=== PATIENT | female | born 1945 | race Caucasian/White ===

== ENCOUNTER → 2016-09-11 | Outpatient (CLI) | payer MEDICARE ==
--- NOTE | 2016-09-11 18:17 | MRI ---
EXAM DESCRIPTION: MR CERVICAL SPINE WITHOUT IV CONTRAST CLINICAL HISTORY: SPONDYLOSIS WITH MYELOPATHY COMPARISON: 19 Jan 2014. TECHNIQUE: Multi plantar multi sequence noncontrast imaging. FINDINGS: There is good alignment of the cervical spine. There is no vertebral abnormality. Craniocervical junction and the cord are unremarkable. No extra spinous abnormality is detected. C2-3: Unremarkable. C3-4: Unremarkable. C4-5: The disc is desiccated. No significant disk bulge or herniation is observed. The right neural foramina is patent. Mild narrowing of the left neural foramen is observed is result of facet joint arthritis. C5-6: The disc is desiccated. A minimal annular bulge is evident. The neural foramina are preserved. Mild facet joint arthritis is noted. C6-7: The disc is desiccated. A minimal 2 mm right-sided disc bulge is observed. No neural foraminal disease of significance is detected. C7-T1: Unremarkable. IMPRESSION: 1. A minimal 2 mm right-sided disc bulge is observed at the C6-7 level. 2. Facet joint arthritis is observed at the C4-5 level with mild narrowing of the left neural foramen 3. A minimal annular bulge is seen at the C5-6 level Electronically signed by: Poncho Contreras MD 09/11/2016 18:14
== END ==
LOC: MRI 14:25
PROVIDERS: ATTEND Neurological Surgery
DX: M43.10 Spondylolisthesis, site unspecified (principal); M47.12 Other spondylosis with myelopathy, cervical region; M46.82 Other specified inflammatory spondylopathies, cervical region; M50.822 Other cervical disc disorders at C5-C6 level

== ENCOUNTER 2016-10-06 15:43 | Observation (INO) | payer MEDICARE ==
--- NOTE | 2016-10-06 15:45 | HP ---
SUPERVISING PHYSICIAN: Danyel Calvin MD CHIEF COMPLAINT: Symptomatic bradycardia. HISTORY OF PRESENT ILLNESS: Ms. Cardoso is a 71-year-old, female patient of Dr. Marcelino. For the past two weeks, the patient has been having some dizziness. This past , she noted her heart rate had decreased significantly. Typically, the patient takes metoprolol tartrate 150 mg daily with 100 mg in the morning and 50 mg at night. She called Dr. Esquivel on who recommended she change her dose to metoprolol 25 mg in the morning and 25 mg at night. On Thursday, the patient was still feeling very weak. She had been keeping her blood pressure and noted her blood pressure was low and her heart rate continued to be low and she had changed her dose of the metoprolol to just 25 mg daily. She presented to Dr. Esquivel' office today still complaining of dizziness and low heart rate. In Dr. Marcelino office, an EKG was completed showing a sinus bradycardia with rate of 34. The patient was having some near syncopal episodes in the office. Dr. Esquivel consulted with Dr. Estes , her paster operator, who recommended that we decrease the metoprolol or stop it altogether and placer her in the hospital overnight for observation for close monitoring and if she stabilizes, discharge her home with an event monitor to further help evaluate underlying bradycardia. She was directly admitted from Dr. Esquivel' office in stable condition. PAST MEDICAL HISTORY: 1. Type 2 diabetes on p.o. medicine. 2. Gastroesophageal reflux disease. 3. Hypertension. 4. Diverticulosis. 5. Irritable bowel syndrome. 6. Past history of gastritis. 7. Obstructive hypertrophic cardiomyopathy that was found in 2012 after she had a workup for severe hypertension during a cystoscopy procedure. 8. History of nephrolithiasis with 3 stones being passed in 05/2014, currently followed by Dr. Evans. 9. Gout. 10. Rosacea. 11. Fatty liver as noted on CT in 01/2007 with no evidence of steato-hepatitis with normal liver functions. PAST SURGICAL HISTORY: 1. Total hysterectomy and bilateral salpingo-oophorectomy secondary to irregular menses. 2. Bilateral knee replacements. 3. Skin cancer removed from the back in 1991. 4. Carpal tunnel release on the right hand twice and left hand once. 5. Multiple procedures for nephrolithiasis with stent placements and lithotripsy on the right. CURRENT MEDICATIONS: 1. Terbinafine 250 mg daily. 2. Simvastatin 20 mg at bedtime. 3. Nitrostat q.5 minutes p.r.n. 4. Aromas 5/325 q.4h. as needed for pain. 5. Glucovance 2 tablets twice daily. 6. Amlodipine 2.5 mg daily. 7. Allopurinol 100 mg daily. 8. Aspirin 81 mg daily. 9. Triamterene/hydrochlorothiazide 37.5/25 mg 1 tablet daily. 10. Omeprazole 40 mg daily. 11. Montelukast sodium 10 mg daily. 12. Metoprolol initially 50 mg in the morning and 50 mg at night, changed within the last four days to initially 25 mg twice daily and then decreased once more to 25 mg once daily. ALLERGIES: NO KNOWN DRUG ALLERGIES. FAMILY HISTORY: Father at age 67 from throat cancer and diabetes mellitus. Mother has hypertension. SOCIAL HISTORY: The patient is retired from [employer]. She is and lives in [place]. She has never smoked and only drinks on occasional basis at social events. Denies any illicit drug use. REVIEW OF SYSTEMS: CONSTITUTIONAL: Denies any fevers, general malaise, headache. HEENT: Denies headaches. She notes she has some visual changes with near syncopal episodes, but denies any nasal congestion, sinus pain or sore throat. RESPIRATORY: Denies shortness of breath, cough. CARDIOVASCULAR: Denies chest pain, but notes she is having some chest tightness at times with slow heart rate and she does have some presyncopal episodes, but has not had a complete syncopal episode. She denies any palpitations. GASTROINTESTINAL: Denies abdominal pain, constipation, nausea or vomiting. She does have a history of irritable bowel syndrome, but is well controlled. NEUROLOGIC: Denies any headaches, but notes she has had some near syncopal episodes as noted in history of present illness. PHYSICAL EXAMINATION: VITAL SIGNS: Temperature 97.9. Pulse 48. Blood pressure 140/68. Respirations 18. O2 saturation 100% on room air. Admission weight 69.3 kg. GENERAL: The patient is well-nourished, well-groomed, appears to be in no acute distress. She is alert and oriented times three. HEENT: Tympanic membranes clear bilaterally. Oropharynx is pink, moist without any lesions. NECK: No jugular venous distention noted. CARDIOVASCULAR: Regular rate and rhythm with bradycardiac rhythm noted on bedside monitor with a systolic murmur. ABDOMEN: Soft, nontender. Positive bowel sounds. EXTREMITIES: There is no cyanosis, clubbing or edema. NEUROLOGIC: The patient is alert and oriented times three. Cranial nerves II- XII are grossly intact. Facial features are symmetrical. Extraocular movements within normal limits. There is no nystagmus. There are no localizing or focalizing neuromotor deficits noted. LABORATORY: CBC within normal limits with white count 8.2, hemoglobin 13.6, hematocrit 40.8, platelet count 185,000, differential shows no shift. PT, PT-T within normal limits. Chemistries show electrolytes within normal limits with potassium 4.1, BUN 18, creatinine 0.9, glucose 124, calcium 11, magnesium 1.4. Liver functions all within normal limits. Troponin less than 0.02. TSH normal at 1.32. RADIOLOGY: Chest x-ray per radiology interpretation single view shows no obvious pleural effusions, pneumothorax. Lungs are normally aerated and clear. Pulmonary vasculature appears to be within normal limits per radiology interpretation. 12 lead EKG shows marked bradycardia with a heart rate of 34. ASSESSMENT: 1. Symptomatic bradycardia, possibly secondary to beta mukesh intolerance requiring modification of beta blockade regimen that includes metoprolol tartrate. 2. Type 2 diabetes mellitus, not requiring insulin. 3. Hypertension. 4. History of irritable bowel syndrome. 5. History of hypertrophic cardiomyopathy with systolic murmur with last echocardiogram noted to be 10/2015 with ejection fraction 65%. 6. History of rosacea. 7. Gastroesophageal reflux disease. 8. Electrolyte imbalance with a mild hypercalcemia and moderate hypomagnesemia, likely secondary to diuretics that include hydrochlorothiazide and most likely chronic with the patient being asymptomatic. PLAN: The patient will be placed in observation tonight and placed on telemetry for close monitoring and further evaluation. Laboratory studies and x -rays were completed. The patient was without any chest pains or any complaints. We will continue to monitor cardiac enzymes q.6h. times two and repeat laboratory studies in the morning to include cardiac enzymes. We will plan to hold her beta mukesh, metoprolol tartrate, tonight. Her last does was 11 o'clock in the morning the date of admission. If the patient is stable overnight, anticipate discharge possibly tomorrow with length of stay to be 1 to 2 days. Once the patient is discharged as per Dr. Estes' request, we will discharge her and set her up with an event monitor to have close clinical followup both with Dr. Esquivel, her primary care provider, and her paster operator, Dr. Estes. She will be started on a diabetic diet, sliding scale. We will also start her on DVT prophylaxis per protocol. Until discharge, we will continue to monitor the patient closely and treat appropriately. #[id number] [facility]
[2016-10-06] MEDS ORDERED: DEXTROSE 50% 25 GM/50 ML SYG IV PRN (15:50)
[2016-10-06] MEDS ORDERED: GLUCAGON INJ 1 MG VIAL SUBCU PRN (15:50)
[2016-10-06] MEDS ORDERED: ACETAMINOPHEN 325 MG TAB PO PRN (15:50)
[2016-10-06] MEDS ORDERED: NITROGLYCERIN 0.4 MG 25 EA TAB SL PRN (15:50)
[2016-10-06] MEDS ORDERED: SODIUM CHLORIDE 0.9% (FLUSH) 10 ML SYG IV PRN (15:50)
[2016-10-06] MEDS ORDERED: IV SET AND CAP CHANGE INJ INJ SCH (16:00)
[2016-10-06] MEDS ORDERED: SODIUM CHLORIDE 0.9% 10 ML VIAL INJ PRN (16:14)
--- NOTE | 2016-10-06 16:22 | RAD ---
EXAM DESCRIPTION: XR CHEST 1 VIEW CLINICAL HISTORY: bradycardia COMPARISON: November 19, 2014 IMPRESSION: Single AP portable upright view of the chest shows cardiac silhouette and pulmonary vasculature to be within normal limits. Lungs are normally aerated and clear. No obvious pleural effusion or pneumothorax is seen. Electronically signed by: Yves Mcnair MD 10/06/2016 16:20
[2016-10-06] MEDS: INSULIN LISPRO 100 UNITS/ML PEN SUBCU SCH ×2 (16:58→21:01)
--- NOTE | 2016-10-06 19:39 | PCM.CORE ---
Physician DVT/VTE - Nurse DVT Assessment & Total Each Risk Factor Represents 3 Points: Medical PT with Hx of DC, CHF, Severe infection/sepsis Each Risk Factor Represents 2 Points: Age 60-74 DVT Assessment Score: 5 - 5 or more Very High Risk Treatments: Early Ambulation *, Sequential Compression Device Pharmacological: Enoxaparin 40mg SQ Daily
[2016-10-06] MEDS ORDERED: OMEPRAZOLE CAP 20 MG CAP ONE (19:46)
[2016-10-06] MEDS ORDERED: HYDROcodone 7.5MG/APAP 325MG 1 EA TAB ONE ×2 (19:46→23:52)
[2016-10-06] MEDS: HYDROCODONE PO PRN ×2 (19:48→23:56)
[2016-10-06] MEDS: SIMVASTATIN 20 MG TAB PO SCH ×2 (19:48→20:36)
[2016-10-06] MEDS: [UNRECOGNIZED DRUG - OTHER] PO PRN ×2 (19:48→23:56)
[2016-10-06] MEDS ORDERED: ENOXAPARIN SODIUM 40 MG/0.4 ML SYG SUBCU SCH (20:00)
[2016-10-06] MEDS ORDERED: SODIUM CHLORIDE 0.9% (FLUSH) 10 ML SYG IV SCH (21:00)
[2016-10-07] MEDS ORDERED: HYDROcodone 7.5MG/APAP 325MG 1 EA TAB ONE (05:32)
[2016-10-07] MEDS: [UNRECOGNIZED DRUG - OTHER] PO PRN (05:33)
[2016-10-07] MEDS: HYDROCODONE PO PRN (05:33)
[2016-10-07] MEDS ORDERED: NON-FORMULARY MEDICATION 1 EA MIS (Omeprazole [Omeprazole] 40 MG) PO SCH (07:00)
[2016-10-07] MEDS ORDERED: SODIUM CHLORIDE 0.9% 10 ML VIAL IV PRN (07:07)
[2016-10-07] MEDS ORDERED: HYDROcodone 7.5MG/APAP 325MG 1 EA TAB PO PRN ×2 (07:08→07:36)
[2016-10-07] MEDS: INSULIN LISPRO 100 UNITS/ML PEN SUBCU SCH ×2 (07:17→11:19)
[2016-10-07] MEDS ORDERED: metFORMIN HCL 500 MG TAB PO SCH (07:30)
[2016-10-07] MEDS ORDERED: OMEPRAZOLE CAP 20 MG CAP PO SCH (07:30)
[2016-10-07] MEDS ORDERED: glyBURIDE 5 MG TAB PO SCH (07:30)
[2016-10-07] MEDS ORDERED: GLYBURIDE METFORMIN PO SCH (07:30)
[2016-10-07] MEDS ORDERED: SODIUM CHLORIDE 0.9% 1000ML 1,000 ML ONE (07:38)
[2016-10-07] MEDS ORDERED: HCTZ 25 MG/TRIAMTERENE 37.5 MG 1 EA CAP PO SCH (09:00)
[2016-10-07] MEDS ORDERED: amLODIPine BESYLATE 5 MG TAB PO SCH (09:00)
[2016-10-07] MEDS ORDERED: ASPIRIN (CHEWABLE) 81 MG TAB PO SCH (09:00)
[2016-10-07] MEDS ORDERED: MONTELUKAST SODIUM 10 MG TAB PO SCH (09:00)
[2016-10-07] MEDS ORDERED: TERBINAFINE HCL 250 MG TAB PO SCH (09:00)
[2016-10-07] MEDS ORDERED: ALLOPURINOL 100 MG TAB PO SCH (09:00)
[2016-10-07] MEDS ORDERED: ATROPINE 1 MG/10 ML SYG IV ONE (09:04)
[2016-10-07] MEDS ORDERED: SODIUM CHLORIDE 0.9% 1000ML 500 ML IVS ONE (09:04)
[2016-10-07 10:03] VITALS: TEMP 98; O2SAT 100
[2016-10-07 11:20] VITALS: BP 118/67
--- NOTE | 2016-10-07 15:30 | DS ---
SUPERVISING PHYSICIAN: Danyel Calvin MD Transfer to [facility] on 10/07/16. DISCHARGE DIAGNOSIS: 1. Symptomatic bradycardia, unknown etiology, requiring pacemaker implantation at [facility] with the patient having been removed from all beta blockade within the last 24 hours. 2. Type 2 diabetes mellitus, not requiring insulin. 3. Hypertension. 4. History of irritable bowel syndrome. 5. History of hypertrophic cardiomyopathy with systolic murmur with last echocardiogram noted to be 10/2015 with ejection fraction 65%. 6. History of rosacea. 7. Gastroesophageal reflux disease. 8. Electrolyte imbalance with a mild hypercalcemia and moderate hypomagnesemia, likely secondary to diuretics that include hydrochlorothiazide and chronic in nature with the patient being asymptomatic. HISTORY OF PRESENT ILLNESS: Ms. Cardoso is a 71-year-old, female patient of Dr. Marcelino. The patient had been having some dizziness for the last several weeks. This past , she noted her heart rate had decreased significantly. Typically, the patient takes metoprolol tartrate 150 mg daily with 100 mg in the morning and 50 mg at night. She called Dr. Esquivel on who recommended she change her dose to metoprolol 25 mg in the morning and 25 mg at night. This past Thursday, the patient was still feeling very weak. She had been keeping her blood pressure and noted her blood pressure was low and her heart rate continued to be low and she had changed her dose of the metoprolol to just 25 mg metoprolol daily. She presented to Dr. Esquivel' office on Thursday, the date of admission, still complaining of dizziness and low heart rate. In Dr. Marcelino office, an EKG was completed showing a sinus bradycardia with rate of 34. The patient was also having some near syncopal episodes in the office. At that point, Dr. Esquivel consulted with Dr. Estes, her corporate specialist, who recommended that the patient be admitted and taken off metoprolol and closely monitored in the hospital overnight for possible concern for need for pacemaker versus complications from beta blockade. Initial hopes were to discharge on the morning after with the patient being removed from her metoprolol altogether, however, she continued to show bradycardia requiring intervention with atropine as she became more symptomatic. Dr. Estes did see the patient in consultation on the Floor and recommended the patient be transferred to [facility] for preparation for possible pacemaker implantation. LABORATORY: CBC on admission was within normal limits. Coagulation studies were within normal limits. Chemistries initially on admission showed normal electrolytes with BUN 18, creatinine 0.92, glucose 123. Glucoses did range from 106 to 123. Magnesium was low at 1.4, calcium 11. Liver functions all within normal limits. Troponin run times 3, all less than 0.02. At time of discharge, electrolytes were within normal limits with potassium 4.0. Last troponin was less than 0.02. Urinalysis was within normal limits. EKG on admission showed a sinus bradycardia. Telemetry through the night showed the patient to be continued in bradycardia with episodes of decreasing down into the low 30s to high 20s. RADIOLOGY: Chest x-ray per radiology interpretation on admission showed no obvious pleural effusions, pneumothorax. Lungs are normally aerated. Pulmonary vasculature appears to be within normal limits. HOSPITAL COURSE: Ms. Cardoso was admitted directly from [facility]' office as noted in history of present illness for concerns for symptomatic bradycardia on . Upon admission, she was without chest pains, just some weakness associated with standing and dizziness. She was placed on telemetry and monitored closely. Laboratory studies were completed with no changes in her EKG or any elevation of troponin. Through the night, the patient remained in the mid-40s. This morning around 7 or 8 o'clock, the patient was out of bed due to some back discomfort that is chronic and it was noted on the monitor that the patient was in the 20s. When nursing staff went in, the patient was lightheaded and was safely escorted back to bed with instructions to remain in bed. I was notified of the patient's condition change. Blood pressure at that time was systolic in the 90s and heart in the low 30s to high 20s. At the time , she was given 0.5 mg of Atropine and remained stable. Dr. Estes was contacted in regards to the patient's condition who recommended the patient be transferred to [facility] for preparation for possible pacemaker implantation. PLAN: The patient is transferred to [facility] in stable condition, but guarded, for symptomatic bradycardia. Dr. Vallecillo was the accepting physician for the hospitalist program with consultation by cardiology , Dr. Estes. Reason for transfer was higher level of care not available at [facility] to include cardiology services. She was transferred by ground ambulance, paramedics. She was NPO at time of transfer. Vital signs at discharge showed blood pressure 118/67, heart rate 42, saturation 100% on room air. Condition on transfer was serious, but stable. #[id number] [facility]
== END 2016-10-07 13:00 | disposition short-term general hospital (02) ==
LOC: MS 15:43
PROVIDERS: ADMIT Family Medicine; ATTEND Nurse Practitioner Family
DX: R00.1 Bradycardia, unspecified (principal); E11.9 Type 2 diabetes mellitus without complications; I10 Essential (primary) hypertension; K58.9 Irritable bowel syndrome, unspecified; I42.2 Other hypertrophic cardiomyopathy; K21.9 Gastro-esophageal reflux disease without esophagitis; E83.52 Hypercalcemia; E83.42 Hypomagnesemia; R42 Dizziness and giddiness; M10.9 Gout, unspecified; L71.9 Rosacea, unspecified; Z79.84 Long term (current) use of oral hypoglycemic drugs; Z79.82 Long term (current) use of aspirin; Z79.899 Other long term (current) drug therapy; Z87.442 Personal history of urinary calculi; Z90.710 Acquired absence of both cervix and uterus; Z96.653 Presence of artificial knee joint, bilateral; Z85.828 Personal history of other malignant neoplasm of skin; Z83.3 Family history of diabetes mellitus; Z82.49 Family history of ischemic heart disease and other diseases of the circulatory system; Z80.2 Family history of malignant neoplasm of other respiratory and intrathoracic organs
CPT/HCPCS: 36415 ×3; 36416 ×3; 71010; 80048; 80053; 81001; 82550 ×2; 82553 ×2; 82948 ×4; 83735; 84443; 84484 ×3; 85025; 85610; 85730; 93005 ×4; 94760; 96372; 96374; G0378; J1650; J7030

== ENCOUNTER → 2017-04-20 | Outpatient (CLI) | payer MEDICARE | END | disposition home or self-care (01) | LOC: GMAL 14:23 | PROVIDERS: ATTEND Family Medicine | DX: N10 Acute pyelonephritis (principal) ==

== ENCOUNTER → 2017-04-27 | Outpatient (CLI) | payer MEDICARE | END | disposition home or self-care (01) | LOC: GMAL 15:17 | PROVIDERS: ATTEND Family Medicine | DX: D53.9 Nutritional anemia, unspecified (principal) ==

== ENCOUNTER → 2017-06-04 | Outpatient (CLI) | payer MEDICARE | END | disposition home or self-care (01) | LOC: GMAL 14:11 | PROVIDERS: ATTEND Family Medicine | DX: N39.0 Urinary tract infection, site not specified (principal) ==

== ENCOUNTER → 2017-08-27 | Outpatient (CLI) | payer MEDICARE | END | disposition home or self-care (01) | LOC: GMAL 10:45 | PROVIDERS: ATTEND Family Medicine | DX: N39.0 Urinary tract infection, site not specified (principal) ==

== ENCOUNTER → 2017-09-21 | Outpatient (CLI) | payer MEDICARE | END | disposition home or self-care (01) | LOC: GMAL 10:47 | PROVIDERS: ATTEND Family Medicine | DX: D51.3 Other dietary vitamin B12 deficiency anemia (principal); R53.83 Other fatigue; E55.9 Vitamin D deficiency, unspecified ==

== ENCOUNTER → 2017-10-19 | Outpatient (CLI) | payer MEDICARE | LOC: LAB.O 11:36 | PROVIDERS: ATTEND Family Medicine | DX: Z20.2 Contact with and (suspected) exposure to infections with a predominantly sexual mode of transmission (principal); Z57.8 Occupational exposure to other risk factors; Z20.6 Contact with and (suspected) exposure to human immunodeficiency virus [HIV] ==

== ENCOUNTER → 2017-11-19 | Outpatient (CLI) | payer MEDICARE ==
--- NOTE | 2017-11-24 15:08 | MAM ---
EXAM DESCRIPTION: 3D Screening BILATERAL : Digital Mammography. CLINICAL HISTORY: 72 years Female ANNUAL SCREENING . Right breast pain "but may be due to exercise." Mother with breast cancer. Postmenopausal. No HRT. COMPARISON: 2-D digital screening bilateral study 01/11/2014. No prior reports available. TECHNIQUE: Bilateral CC and MLO projection full-field images, 3-D tomosynthesis digital mammographic technique. Also bilateral synthesized CC/ MLO full-field images. CAD not utilized. FINDINGS: The breast parenchymal density pattern is: Heterogeneously dense breast tissue, which may obscure small masses. No skin thickening or nipple retraction bilateral solitary microcalcifications. Right breast intramammary lymph node in the axillary tail. No focal, stellate mass or density, focal asymmetry , and no suspicious microcalcifications bilaterally. Stable mammograms compared to prior study, taking into account differences in mammographic technique IMPRESSION: BI-RADS CATEGORY: 2 - BENIGN FINDINGS. FOLLOW UP: Routine digital bilateral screening, one year interval from October 2017. Written communication explaining the IMPRESSION and follow-up, will be mailed to the patient and referring health care provider. According to the [employer], yearly mammograms are recommended starting at age 40 and continuing as long as a woman is in good health. Any breast change noted on a breast self-exam should be reported promptly to the patient's healthcare provider. Breast MRI is recommended for women with an approximately 20-25% or greater lifetime risk of breast cancer, including women with a strong family history of breast or ovarian cancer and women who have been treated for Hodgkin's disease. A negative mammographic report should not delay tissue diagnosis in patients with significant clinical history or physical findings. Extremely dense breast tissue limits the sensitivity of digital mammography. Electronically signed by: Alex Landaverde MD 11/24/2017 3:06 PM CDT
== END ==
LOC: MAMMO 09:30
PROVIDERS: ATTEND Family Medicine
DX: Z12.31 Encounter for screening mammogram for malignant neoplasm of breast (principal)

== ENCOUNTER → 2018-03-24 | Outpatient (CLI) | payer MEDICARE | LOC: GMAL 14:58 | PROVIDERS: ATTEND Family Medicine | DX: E55.9 Vitamin D deficiency, unspecified (principal); M10.9 Gout, unspecified ==

== ENCOUNTER → 2018-04-29 | Outpatient (CLI) | payer MEDICARE ==
--- NOTE | 2018-04-29 12:40 | CT ---
EXAM DESCRIPTION: Head CLINICAL HISTORY: ATAXIA, balance problems several weeks, left arm weakness COMPARISON: None available TECHNIQUE: Noncontrast head CT was performed with routine protocol. FINDINGS: Degenerative changes at the AC joints. No acute process in the brain. Normal araiza-white matter differentiation. Ventricles and sulci are prominent consistent with age-related cerebral volume loss. Chronic lacunar lesions in the basal ganglia. No high density hemorrhage, focal edema or shift of the midline. No sulcal effacement. Normal orbital contents. Basilar cisterns appear clear. Intact calvarium with no fracture or lytic lesion. Normal aeration of tympanic cavities and mastoid air cells. No fluid levels in the paranasal sinuses. Skull base appears intact. Symmetrical internal auditory canals. Coronal and sagittal reformatted images confirm the findings. IMPRESSION: No acute intracranial pathologic process. This exam was performed according to our departmental dose-optimization program, which includes automated exposure control, adjustment of the mA and/or kV according to patient size and/or use of iterative reconstruction technique. Total DLP equals 752.48 mGycm. Electronically signed by: Bob Gallardo MD 04/29/2018 12:39 PM CDT
== END ==
LOC: CT 11:42
PROVIDERS: ATTEND Family Medicine
DX: I69.993 Ataxia following unspecified cerebrovascular disease (principal)

== ENCOUNTER → 2018-06-22 | Outpatient (CLI) | payer MEDICARE | LOC: GMAL 13:30 | PROVIDERS: ATTEND Family Medicine | DX: R53.83 Other fatigue (principal); E34.9 Endocrine disorder, unspecified; E78.49 Other hyperlipidemia; E11.9 Type 2 diabetes mellitus without complications ==

== ENCOUNTER → 2018-10-05 | Outpatient (CLI) | payer MEDICARE ==
--- NOTE | 2018-10-05 11:42 | CT ---
EXAM DESCRIPTION: Head CLINICAL HISTORY: HEADACHE COMPARISON: Previous CT head April 29, 2018 TECHNIQUE: Noncontrast head CT was performed with routine protocol. FINDINGS: Normal araiza-white matter differentiation. Ventricles and sulci are normal for age. No change compared to previous study. No high density hemorrhage, focal edema or shift of the midline. No sulcal effacement. Normal orbital contents. Basilar cisterns appear clear. Intact calvarium with no fracture or lytic lesion. Normal aeration of tympanic cavities and mastoid air cells. No fluid levels in the paranasal sinuses. Skull base appears intact. Symmetrical internal auditory canals. Coronal and sagittal reformatted images confirm the findings. Advanced degenerative osteoarthrosis of the temporomandibular joints bilaterally. IMPRESSION: No acute intracranial pathologic process. This exam was performed according to our departmental dose-optimization program, which includes automated exposure control, adjustment of the mA and/or kV according to patient size and/or use of iterative reconstruction technique. Total DLP equals 752.48 mGycm. Electronically signed by: Bob Gallardo MD 10/05/2018 11:40 AM [facility]
--- NOTE | 2018-10-05 17:41 | CT ---
EXAM DESCRIPTION: CT ABDOMEN AND PELVIS WITHOUT AND WITH CONTRAST CLINICAL HISTORY: ABD PAIN COMPARISON: CT abdomen and pelvis June 18, 2014 TECHNIQUE: CT of the abdomen and pelvis are performed prior to and during IV bolus administration of routine adult dose of nonionic iodinated IV contrast. Oral contrast media is administered as well. FINDINGS: CT abdomen The lung bases are clear of infiltrate. Liver is normal in size and low in density consistent with diffuse hepatic steatosis with sparing near the gallbladder. This is seen on the precontrast images. Spleen, pancreas, and left kidney are unremarkable. Large calculus or cluster of calculi in the lower infundibulum of the right kidney protrudes toward the pelvis and measures 1.4 cm in greatest dimension. No significant hydronephrosis to suggest obstructive uropathy. No stones in the left kidney. Previous study showed right hydroureteronephrosis due to the presence of a distal right ureteral calculus. This has passed or has been removed since the previous study. After IV contrast, repeat helical scanning through the abdomen was performed. Cardiac pacer is in place. Normal enhancement of cardiac chambers. In the upper abdomen, there is normal enhancement of the liver, spleen, kidneys, pancreas, and upper abdominal vessels. No calcified stones in the gallbladder. Contrast has passed through the proximal small bowel into the distal small bowel and colon. Moderate to large amount of fecal material in the descending and sigmoid colon. CT pelvis No inflammation is seen around the cecum or terminal ileum or sigmoid colon. Lipoma of the ileocecal valve measures 1.9 cm. Appendix is normal in appearance. No stones are seen in the distal ureters or bladder. Normal pelvic small bowel loops. No fracture or lytic lesion of the osseous structures. Postcontrast images show normal enhancement of the pelvic vessels. Uterus and ovaries are not seen, evidently surgically absent. Fatty patulous right inguinal ring without bowel containing hernia. Degenerative changes in lumbar spine and hips. Delayed postcontrast images show normal accumulation of contrast in the urinary collecting systems. Prominence of the right renal pelvis and right intrarenal collecting system is noted without evidence of obstruction. There is contrast in the urinary bladder. Coronal and sagittal reformatted images confirm the findings. Liver length of 19.6 cm is increased. IMPRESSION: Nonobstructing calculus in the lower infundibulum of the right kidney 1.4 cm. 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 Hepatomegaly with diffuse hepatic steatosis. No acute process in the upper abdomen or in the pelvis. This exam was performed according to our departmental dose-optimization program, which includes automated exposure control, adjustment of the mA and/or kV according to patient size and/or use of iterative reconstruction technique. Electronically signed by: Bob Gallardo MD 10/05/2018 5:39 PM [facility] [place]
== END ==
LOC: CT 09:17
PROVIDERS: ATTEND Family Medicine
DX: R10.84 Generalized abdominal pain (principal); N20.0 Calculus of kidney; K76.0 Fatty (change of) liver, not elsewhere classified; G44.209 Tension-type headache, unspecified, not intractable

== ENCOUNTER → 2018-10-08 | Outpatient (CLI) | payer MEDICARE ==
--- NOTE | 2018-10-08 16:15 | CT ---
EXAM DESCRIPTION: Lumbar Spine: Computed Tomography. CLINICAL HISTORY: 73 years Female RADICULOPATHY. History of neck and low back pain. COMPARISON: CT scan of the cervical spine on the same visit. TECHNIQUE: Spiral, axial 2.5 x 2.5 mm scans through the lumbarspine without contrast. Coronal and sagittal 2.0 mm Reconstructions. No adverse reactions. Total Exam DLP: 489.05 mGy-cm. This exam was performed according to our departmental dose-optimization program which includes automated exposure control, adjustment of the mA and/or kV according to patient size and/or use of iterative reconstruction technique; to reduce radiation dose to as low as reasonably achievable (ALARA). FINDINGS: L5-S1: Disc space maintained. Posterior midline 3 mm disc bulge abutting the thecal sac. Mild canal narrowing. Bilateral facet arthrosis with narrowing of the foramen. L4-L5: Minimal disc space loss with anterior and posterior calcification of the disc. 2 mm grade 1 anterolisthesis. Posterior bulging disc impressing on the thecal sac along with bilateral calcified hypertrophied flavum ligaments. AP canal diameter 9 mm. Disc bulge or protrusion into the right foramen and right facet joint hypertrophy with foraminal stenosis. Moderate narrowing of the left foramen. L3-L4: Minimal disc space loss. Anterior endplate reactive changes with inferior L3 Schmorl's node. Posterior broad-based 4 mm disc bulge abutting the thecal sac. Bilateral facet arthrosis and hypertrophy of the joints and flavum ligaments. AP canal diameter 9 mm. Mild right foraminal narrowing with facet spur abutting the nerve root. Moderate left foraminal narrowing. L2-L3: Minimal disc space loss and posterior disc bulge with calcified rim. Calcified disc also bulging into the bilateral foramina with mild narrowing of the canal and the foramina. Bilateral facet arthrosis and joint and ligament hypertrophy more left than right. L1-L2: S2 disc bulge with calcification. Anterior endplate ridging. Mild canal narrowing with no significant foraminal narrowing. T12-L1: Minimal disc bulging. No canal or foraminal narrowing. Minimal facet arthrosis bilaterally and it hypertrophy of the flavum ligaments. Right convex L4 S1- curvature and left convex L1- L4 curvature. No compression type vertebral body fractures. No spondylolisthesis at other levels. IMPRESSION: 1. 2 mm grade 1 anterolisthesis at L4-L5. No spondylolysis. Disc bulge into the canal and herniation into the right foramen along with right facet subluxation and hypertrophy, right foraminal stenosis and impingement of the exiting right L4 nerve. Borderline mild canal stenosis. 2. Posterior broad-based L3-L4 disc bulge. Borderline mild central canal stenosis. Moderate left foraminal narrowing. Right facet spur abutting the right L3 nerve in the right foramen. 3. L2-L3 calcified disc bulging into the canal and bilateral foramina with narrowing but no stenosis and no definite nerve impingement. Electronically signed by: Alex Landaverde MD 10/08/2018 4:13 PM [facility]
--- NOTE | 2018-10-08 21:26 | CT ---
EXAM DESCRIPTION: Cervical Spine: Computed Tomography. CLINICAL HISTORY: 73 years Female RADICULOPATHY COMPARISON: CT scan of the lumbar spine on the same visit. TECHNIQUE: Spiral, axial 2.5 x 2.5 mm scans through the cervical spine without contrast. Coronal and sagittal 2.0 mm Reconstructions. Total Exam DLP: 343.37 mGy-cm. This exam was performed according to our departmental dose-optimization program which includes automated exposure control, adjustment of the mA and/or kV according to patient size and/or use of iterative reconstruction technique; to reduce radiation dose to as low as reasonably achievable (ALARA). FINDINGS: Narrowing of the atlantoaxial axial joint with marginal spurs. Diffuse calcifications around the odontoid and the transverse ligament. Bilateral advanced occipital facets with mild arthrosis. Minimal arthrosis in the left C1-C2 facets. C2-C3: Narrowing of the disc with no significant bulging. Canal and right neuroforamen are patent. Left uncinate spur and facet arthrosis resulting in moderate foraminal neural foraminal narrowing. Right neuroforamen is patent. C3-C4: Narrowing of the disc space with no significant bulging. Moderate narrowing of the right neural foramen due to facet arthrosis and hypertrophy and uncinate spur on the right. Minimal narrowing of the left neural foramen by facet arthrosis. C4-C5: Anterior endplate ridging and minimal disc space narrowing. Minimal facet arthrosis on the right with no neural foraminal narrowing. Left uncinate spur and large hypertrophic spur from left facet arthrosis resulting in left neural foraminal stenosis. C5-C6: Minimal disc space narrowing and posterior disc osteophyte bulge into the canal. Bilateral uncinate spurs. Minimal right facet arthrosis and minimal neural foraminal narrowing. Minimal canal narrowing with calcification of the posterior ligament. Left uncinate spur and hypertrophic arthrosis of the left facet resulting in left neural foraminal stenosis. C6-C7: Anterior endplate ridging and disc bulge. Minimal disc space loss posteriorly. Posterior disc osteophyte bulge to the right of midline with mild to moderate narrowing of the canal. Disc bulge into the right neuroforamen with moderate narrowing. Moderate to severe narrowing of the left neural foramen with uncinate spur and facet arthrosis and hypertrophy. C7-T1: Disc space loss with minimal posterior disc bulge with spur in the midline. Bilateral small uncinate spurs and bilateral facet arthrosis with moderate right neural foraminal narrowing and moderate to severe left neural foraminal narrowing. Cervical lordosis is maintained. Trace dextro-scoliosis. No compression type vertebral body fractures at any level. No significant spondylolisthesis. Groundglass subpleural density abutting the medial left apex of the lung, more likely chronic senescent change, than acute infiltrate. No asymmetric soft tissue masses are significantly enlarged lymph nodes in the included neck. Evaluation is limited due to lack of IV contrast. Included mastoid air cells are unremarkable. IMPRESSION: Neuroforaminal stenosis or narrowing at multiple levels secondary to uncinate spurs and facet arthrosis. Details to follow: 1. Left neural foraminal stenosis at C5-6 is multifactorial. Minimal disc bulge. Correlate for left C6 radiculopathy. 2. Left neural foraminal stenosis at C4-5 is multifactorial. No canal narrowing. Correlate for left C5 radiculopathy. 3. Moderate narrowing of the left neural foraminal at C2-3 and moderate narrowing of the right neuroforamen at C3-4. 4. Moderate to severe narrowing of the left neural foramen at C6-7 is multifactorial. Correlate for left C7 radiculopathy. Similar findings at C7-T1. Correlate for left C8 radiculopathy. Electronically signed by: Alex Landaverde MD 10/08/2018 9:24 PM [employer]
== END ==
LOC: CT 09:48
PROVIDERS: ATTEND Family Medicine
DX: R59.9 Enlarged lymph nodes, unspecified (principal); M51.16 Intervertebral disc disorders with radiculopathy, lumbar region; M48.02 Spinal stenosis, cervical region; M50.922 Unspecified cervical disc disorder at C5-C6 level; M50.923 Unspecified cervical disc disorder at C6-C7 level

== ENCOUNTER → 2018-12-23 | Outpatient (CLI) | payer MEDICARE ==
--- NOTE | 2018-12-27 16:24 | MAM ---
EXAM DESCRIPTION: 3D Screening BILATERAL : Digital Mammography. CLINICAL HISTORY: 73 years Female SCREENING . No complaints or personal history of breast cancer. Mother with breast cancer. Childbirth. Postmenopausal 23 years. HRT for 2 months currently.. Lifetime risk of developing breast cancer (Tyrer-Cuzick model)(%): 9.2 COMPARISON: 2-D digital screening bilateral mammography 11/19/2017. TECHNIQUE: Bilateral CC and MLO projection full-field images, digital tomosynthesis mammographic technique. Bilateral digital 2-D full-field MLO images. CAD not available for tomosynthesis or 2-D images. FINDINGS: The breast parenchymal density pattern is: Scattered areas of fibroglandular density. No skin thickening or nipple retraction. Bilateral small microcalcifications. Focal asymmetry in the upper outer quadrant of the middle third of the right breast is stable. No new focal, stellate mass or density, focal asymmetry , and no suspicious microcalcifications Stable mammograms compared to prior study. IMPRESSION: Benign exam. BIRAD CATEGORY: 2 BENIGN FINDINGS. RECOMMENDATIONS: FOLLOW UP: Routine digital bilateral mammographic screening, one year interval from November 2018. Written communication explaining the IMPRESSION and follow-up, will be mailed to the patient and referring health care provider. The FINDINGS and the FOLLOW-UP plan were reviewed in person with the patient after the examination. According to the [employer], yearly mammograms are recommended starting at age 40 and continuing as long as a woman is in good health. Any breast change noted on a breast self-exam should be reported promptly to the patient's healthcare provider. Breast MRI is recommended for women with an approximately 20-25% or greater lifetime risk of breast cancer, including women with a strong family history of breast or ovarian cancer and women who have been treated for Hodgkin's disease. A negative mammographic report should not delay tissue diagnosis in patients with significant clinical history or physical findings. Extremely dense breast tissue limits the sensitivity of digital mammography. Electronically signed by: Alex Landaverde MD 12/27/2018 4:22 PM CDT
== END ==
LOC: MAMMO 12:31
PROVIDERS: ATTEND Nurse Practitioner Family
DX: Z12.31 Encounter for screening mammogram for malignant neoplasm of breast (principal); R07.89 Other chest pain

== ENCOUNTER → 2018-12-28 | Outpatient (CLI) | payer MEDICARE ==
--- NOTE | 2018-12-28 10:48 | CT ---
EXAM DESCRIPTION: Head CLINICAL HISTORY: DIZZINESS AND GIDDINESS COMPARISON: CT head October 05, 2018 TECHNIQUE: Noncontrast head CT was performed with routine protocol. FINDINGS: Normal araiza-white matter differentiation. Old lacunar infarct in the right basal ganglia. Ventricles and sulci are normal for age. No high density hemorrhage, focal edema or shift of the midline. No sulcal effacement. Normal orbital contents. Basilar cisterns appear clear. Intact calvarium with no fracture or lytic lesion. Normal aeration of tympanic cavities and mastoid air cells. No fluid levels in the paranasal sinuses. Skull base appears intact. Symmetrical internal auditory canals. Coronal and sagittal reformatted images confirm the findings. IMPRESSION: No acute intracranial pathologic process. This exam was performed according to our departmental dose-optimization program, which includes automated exposure control, adjustment of the mA and/or kV according to patient size and/or use of iterative reconstruction technique. Total DLP equals 859.97 mGycm. Electronically signed by: Bob Gallardo MD 12/28/2018 10:46 AM CDT
== END ==
LOC: CT 09:30
PROVIDERS: ATTEND Nurse Practitioner Family
DX: R42 Dizziness and giddiness (principal)

== ENCOUNTER 2019-06-01 05:45 | Day surgery (SDC) | payer MEDICARE ==
[2019-06-01] MEDS ORDERED: LACTATED RINGERS 1,000 ML ONE (06:01)
[2019-06-01] MEDS ORDERED: PROPOFOL 200 MG/20 ML VIAL IV ONE (10:00)
[2019-06-01] MEDS ORDERED: LIDOCAINE 1% 10 ML VIAL INJ ONE (10:00)
--- NOTE | 2019-06-01 10:08 | OP ---
DATE OF PROCEDURE: 06/01/19 PREOPERATIVE DIAGNOSIS: 1. Change in bowel habits with constipation. 2. Bilateral lower quadrant pain. POSTOPERATIVE DIAGNOSIS: 1. Diverticulosis. 2. Internal hemorrhoids. 3. Possible rectal prolapse. PROCEDURE: 1. Colonoscopy plus biopsy. SURGEON: Mj Aparicio MD. COMPLICATIONS: None apparent. BLOOD LOSS: None. MEDICATIONS: Monitored anesthesia care. DESCRIPTION OF PROCEDURE: Informed consent was obtained prior to sedation. The preprocedure cardiopulmonary assessment was satisfactory. The patient was placed in the left lateral decubitus position and was sedated. Digital rectal exam reveals decreased anal sphincter tone and I think she is suffering from some prolapse. There were no rectal masses. The tip of the Olympus colonoscope was inserted in the rectum and guided over to the cecum. The cecum was identified by locating the ileocecal valve and appendiceal orifice. The ileocecal valve was intubated and the distal terminal ileum was unremarkable. Retroflexed view in the right colon was obtained. The mucosa of the cecum, ascending colon, hepatic flexure, transverse colon, splenic flexure, descending colon and sigmoid colon was closely examined. Direct and retroflexed views of the rectum were obtained. The patient had some sigmoid diverticulosis. There are internal hemorrhoids seen on retroflexed view. Random colon biopsies were taken with a cold biopsy forceps to rule out microscopic colitis. The procedure was then terminated. RECOMMENDATIONS: 1. The patient is now 73 and does not need followup colonoscopy for colon cancer screening. 2. Followup the biopsies. 3. She may warrant further followup for dyssynergic defecation, prolapse, etc. #[id number] cc: Poncho Esquivel MD [facility]
[2019-06-01 13:57] VITALS: BP 210/89; TEMP 96.9; O2SAT 99
== END 2019-06-01 10:40 | disposition home or self-care (01) ==
LOC: AMB 05:45
PROVIDERS: ATTEND Internal Medicine Gastroenterology
DX: R19.4 Change in bowel habit (principal); K57.30 Diverticulosis of large intestine without perforation or abscess without bleeding; K64.8 Other hemorrhoids; I10 Essential (primary) hypertension; E11.9 Type 2 diabetes mellitus without complications; Z90.710 Acquired absence of both cervix and uterus; Z79.82 Long term (current) use of aspirin; Z79.899 Other long term (current) drug therapy
CPT/HCPCS: 00811; 45380; 88305; J3490; J7120

== ENCOUNTER → 2019-08-05 | Outpatient (CLI) | payer MEDICARE | LOC: GMAL 12:49 | PROVIDERS: ATTEND Family Medicine | DX: I10 Essential (primary) hypertension (principal); D63.8 Anemia in other chronic diseases classified elsewhere; E11.9 Type 2 diabetes mellitus without complications; E78.49 Other hyperlipidemia; Z79.899 Other long term (current) drug therapy ==

== ENCOUNTER 2020-01-10 12:40 | Emergency (ER) | payer MEDICARE ==
[2020-01-10] MEDS ORDERED: SODIUM CHLORIDE 0.9% (FLUSH) 10 ML SYG IV PRN (13:06)
[2020-01-10] MEDS ORDERED: SODIUM CHLORIDE 0.9% 1000ML 1,000 ML IVS ONE (13:06)
[2020-01-10] MEDS ORDERED: ONDANSETRON INJ 4 MG/2 ML VIAL IV ONE (13:07)
--- NOTE | 2020-01-10 15:56 | ED.PDOC ---
History of Present Illness - General Chief Complaint: GI Problem Stated Complaint: diarrhea, abd pain Time Seen by Provider: 01/10/20 13:05 Information Source: patient, RN notes reviewed, Vital Signs reviewed Exam Limitations: no limitations - History of Present Illness Initial Comments: Patient is a 74-year-old white female who presents with complaints of ongoing diarrhea x2 weeks. Patient was sent over from Dr. Esquivel's office for further evaluation and treatment.Patient denies any abdominal pain. She states that she is just feeling weak and fatigued. She notices no blood in the diarrhea. Abdominal Pain Onset Location: generalized abdomen Pain Radiation: no radiation Quality: mild, cramping, waxing/waning Timing/Duration: other - 2 weeks Improving Factors: nothing Worsening Factors: eating Associated Symptoms: diarrhea, nausea/vomiting - Nausea only Review of Systems - Review of Systems Constitutional: States: see HPI, malaise, weakness. Denies: chills, fever EENTM: States: no symptoms reported. Denies: eye pain, double vision, throat pain, mouth pain Respiratory: States: no symptoms reported. Denies: cough, short of breath, stridor, wheezing Cardiology: States: no symptoms reported. Denies: chest pain, palpitations, syncope Gastrointestinal/Abdominal: States: see HPI, diarrhea, nausea Genitourinary: States: no symptoms reported. Denies: discharge, dysuria, frequency Musculoskeletal: States: no symptoms reported. Denies: back pain, neck pain Skin: States: no symptoms reported. Denies: change in color, rash Endocrine: States: no symptoms reported Hematologic/Lymphatic: States: no symptoms reported All other Systems: Reviewed and Negative Past Medical History (General) - Patient Medical History Hx Seizures: No - not diagnosed Hx Stroke: Yes - mini strokes Hx Dementia: No Hx Asthma: No Hx of COPD: No Hx Cardiac Disorders: Yes Hx Congestive Heart Failure: No Hx Pacemaker: Yes Hx Hypertension: Yes Hx Thyroid Disease: No Hx Diabetes: Yes - oral medications Hx Gastroesophageal Reflux: Yes Hx Renal Disease: No Hx Cancer: Yes - skin Hx MRSA: No Surgical History: Hysterectomy - Vaccination History Hx Tetanus, Diphtheria Vaccination: No Hx Influenza Vaccination: Yes Hx Pneumococcal Vaccination: Yes Immunizations Up to Date: Yes - Social History Hx Tobacco Use: No Hx Alcohol Use: No Hx Substance Use: No Hx Substance Use Treatment: No Hx Depression: No Hx Physical Abuse: No Hx Emotional Abuse: No Hx Suspected Abuse: No - Female History Patient : No Family Medical History - Family History Mother Family History: Unknown Physical Exam - Physical Exam General Appearance: Alert, Anxious, Well Developed, Well Groomed, Well Hydrated, Well Nourished Eyes, Ears, Nose, Throat Exam: PERRL/EOMI, normal ENT inspection, pharynx normal - Except for dry mucous membranes. Neck: non-tender, full range of motion, supple Respiratory: chest non-tender, lungs clear, normal breath sounds, no respiratory distress Cardiovascular/Chest: normal peripheral pulses, regular rate, rhythm, no edema Peripheral Pulses: No deficit Gastrointestinal/Abdominal: normal bowel sounds, non tender, soft, no organomegaly Back Exam: normal inspection, no CVA tenderness, no vertebral tenderness Extremity: normal range of motion, non-tender, normal inspection Neurologic: pediatric lpn II-XII nml as tested, no motor/sensory deficits, alert, normal mood/affect, oriented x 3 Skin Exam: normal color, warm/dry Lymphatic: no adenopathy Progress - Progress Progress: Differential diagnosis: Infectious diarrhea, gastroenteritis, medication reaction, bowel obstruction among others. 01/10/20 16:00 Patient symptoms have resolved after IV Zofran and IV fluids. Patient was unable to provide a sample of stool for culture. Plan on discharge home with follow-up with PCP in the next 1 to 2 days. I have discussed this plan of care with the patient she voices understanding and agreement with the plan of care. Som Moore M.D. #[id number] - Results/Orders Results/Orders: 01/10/20 13:06 FECAL OCCULT BLOOD Stat Sodium Chloride 0.9% (Flush) [Saline Flush Syringe] 10 ml IV PRN PRN STOOL CULTURE Stat 01/10/20 13:15 EKG STAT Laboratory Results - last 24 hr 01/10/20 01/10/20 01/10/20 13:40 13:40 14:28 WBC 5.2 RBC 3.94 L Hgb 12.3 Hct 36.7 MCV 93.0 MCH 31.2 H MCHC 33.6 RDW 13.6 Plt Count 180 MPV 9.7 Absolute Neuts (auto) 3.10 Absolute Lymphs (auto) 1.30 Absolute Monos (auto) 0.40 Absolute Eos (auto) 0.30 Absolute Basos (auto) 0.10 Neutrophils % 60.6 Lymphocytes % 25.7 Monocytes % 6.9 Eosinophils % 5.6 H Basophils % 1.2 Sodium 135 Potassium 5.0 Chloride 102 Carbon Dioxide 24 Anion Gap 14.0 BUN 16 Creatinine 1.01 BUN/Creatinine Ratio 15.8 Random Glucose 224 H Serum Osmolality 278.3 Calcium 10.1 Total Bilirubin 0.6 Direct Bilirubin 0.1 Indirect Bilirubin 0.5 AST 27 ALT 17 Alkaline Phosphatase 47 Serum Total Protein 7.5 Albumin 4.1 Lipase 43 Urine Color Yellow Urine Appearance Clear Urine pH 5.5 Ur Specific [place] 1.020 Urine Protein Negative Urine Glucose (UA) 500 H Urine Ketones Negative Urine Blood Negative Urine Nitrite Negative Urine Bilirubin Negative Urine Urobilinogen 0.2 Ur Leukocyte Esterase Negative Urine RBC 0 Urine WBC 1-3 Ur Epithelial Cells 0-1 Urine Bacteria Rare Vital Signs 01/10/20 01/10/20 13:39 14:00 Temperature 97.5 F L Pulse Rate [ 60 60 monitor] Respiratory 20 18 Rate Blood Pressure 169/70 160/70 [Left Arm] O2 Sat by Pulse 95 98 Oximetry EKG performed 10 Jan 2020 at 1316 hrs.: Normal sinus rhythm at 60 bpm, normal axis deviation, no ST or T wave changes, normal EKG. Departure - Departure Clinical Impression: Gastroenteritis, Dehydration Time of Disposition: 16:01 Disposition: Discharge to Home or Self Care Condition: Good Departure Forms: ED Discharge - Pt. Copy, Patient Portal Self Enrollment Instructions: Viral Gastroenteritis, Adult (DC), Dehydration, Adult (DC) Diet: resume usual diet Activity: increase activity as tolerated Referrals: Poncho Esquivel III, MD [Primary Care Provider] - 1-5 Days Home Medications: Ambulatory Orders Glyburide-Metformin [Glucovance] 2 tab PO BID 08/02/13 Nitroglycerin 0.4 mg Tab [Nitrostat] 1 ea SL Q5MIN PRN 08/02/13 Simvastatin 20 mg PO HS 08/02/13 Aspirin [Aspirin Childrens] 81 mg PO DAILY 10/06/16 HYDROcodone 7.5MG/APAP 325MG [[place] 7.5/325] 1 tab PO Q4H PRN 10/06/16 Montelukast Sodium 10 mg PO DAILY 10/06/16 Omeprazole 40 mg PO BID 10/06/16 Cyanocobalamin [Vitamin B-12] 1,000 mcg PO DAILY 05/30/19 Ferrous Sulfate [Iron] 65 mg PO DAILY 05/30/19 Gabapentin 300 mg PO BEDTIME 05/30/19 Isosorbide Mononitrate [Imdur] 30 mg PO DAILY 05/30/19 Lisinopril [Prinivil] 20 mg PO DAILY 05/30/19 Metoprolol Tartrate 100 mg PO BID 05/30/19 Allopurinol [Zyloprim] 100 mg PO BID 01/10/20 Linaclotide [Linzess] 72 mcg PO 01/10/20 Sitagliptin Phosphate [Januvia] 100 mg PO DAILY 01/10/20
[2020-01-10 16:31] VITALS: BP 200/79; TEMP 97.2; O2SAT 97
== END 2020-01-10 16:15 | disposition home or self-care (01) ==
LOC: ER 12:40
DX: K52.9 Noninfective gastroenteritis and colitis, unspecified (principal); E86.0 Dehydration; I10 Essential (primary) hypertension; E11.9 Type 2 diabetes mellitus without complications; Z95.0 Presence of cardiac pacemaker; Z79.899 Other long term (current) drug therapy
CPT/HCPCS: 36415; 80048; 80076; 81001; 83690; 85025; 93005; J2405; J7030

== ENCOUNTER → 2020-02-08 | Outpatient (CLI) | payer MEDICARE | LOC: LAB.O 13:21 | PROVIDERS: ATTEND Internal Medicine Gastroenterology | DX: R19.7 Diarrhea, unspecified (principal) ==

== ENCOUNTER → 2020-03-05 | Outpatient (CLI) | payer MEDICARE | LOC: GMAL 11:25 | PROVIDERS: ATTEND Family Medicine | DX: E11.9 Type 2 diabetes mellitus without complications (principal); D63.8 Anemia in other chronic diseases classified elsewhere; E78.49 Other hyperlipidemia; I10 Essential (primary) hypertension; Z79.899 Other long term (current) drug therapy ==